=== PATIENT | male | born 1945 | race Caucasian/White ===

== ENCOUNTER 2018-05-20 21:48 | Inpatient (IN) | payer MEDICARE, BC ==
[2018-05-20] MEDS ORDERED: CEFEPIME 2GM/50 ML (PMX) 50 ML IVPB (22:21)
[2018-05-20] MEDS: morphine 4 MG/ML VIAL IV (22:27)
[2018-05-20] MEDS: ONDANSETRON 4 MG INJ IV (22:27)
[2018-05-20] MEDS: SODIUM CHLORIDE 0.9% 1L BAG IV* (22:37)
[2018-05-20 22:47] LABS: ADD MAN DIFF? NO
[2018-05-20 22:49] LABS: ABNORMAL IP MESSAGE 1; BASOPHILS % 0.2 % (0.0-2.0); EOSINOPHILS % 0.4 % (0.0-7.0); HEMATOCRIT 42.7 % (42.0-52.0); LYMPHOCYTES # 0.6 10^3/ul (0.8-2.9); LYMPHOCYTES % 4.9 % (15.0-51.0); MEAN CORPUSCULAR HEMOGLOBIN 30.3 pg (29.0-33.0); MEAN CORPUSCULAR HGB CONC 32.8 g/dl (32.0-37.0); MEAN CORPUSCULAR VOLUME 92.4 fl (82.0-101.0); MEAN PLATELET VOLUME 9.9 fl (7.4-10.4); MONOCYTE # 0.1 10^3/ul (0.3-0.9); MONOCYTES % 0.7 % (0.0-11.0); NEUTROPHIL # 10.4 10^3/ul (1.6-7.5); NEUTROPHILS % 93.3 % (39.0-77.0); PLATELET COUNT 181 10^3/UL (140-415); POSITIVE DIFF @See below; RED BLOOD COUNT 4.62 10^6/ul (4.70-6.10); RED CELL DISTRIBUTION WIDTH 13.2 % (11.5-14.5)
[2018-05-20 22:49] LABS: WHITE BLOOD COUNT 11.2 10^3/ul (4.8-10.8)
[2018-05-20 23:05] LABS: ALANINE AMINOTRANSFERASE 16 IU/L (13-69); ALBUMIN 3.7 g/dl (3.3-4.9); ALBUMIN/GLOBULIN RATIO 1.32; ALKALINE PHOSPHATASE 110 IU/L (42-121); ANION GAP 10 (8-16); ASPARTATE AMINO TRANSFERASE 25 IU/L (15-46); BILIRUBIN,INDIRECT 0.6 mg/dl (0-1.1); BILIRUBIN,TOTAL 0.6 mg/dl (0.2-1.3); BLOOD UREA NITROGEN 18 mg/dl (7-20); CALCIUM 8.6 mg/dl (8.4-10.2); CARBON DIOXIDE 28 mmol/L (21-31); CHLORIDE 104 mmol/L (97-110); CREATININE 1.14 mg/dl (0.61-1.24); GLUCOSE 108 mg/dl (70-220); POTASSIUM 4.1 mmol/L (3.5-5.1); SODIUM 138 mmol/L (135-144); TOTAL PROTEIN 6.5 g/dl (6.1-8.1)
[2018-05-20 23:09] LABS: INR 1.01; PROTIME 13.4 Sec (11.9-14.9)
[2018-05-20 23:18] LABS: TROPONIN-I 0.015 ng/ml (0.000-0.120)
[2018-05-20 23:33] LABS: LACTIC ACID 2.2 mmol/L (0.5-2.0)
[2018-05-21 00:44] LABS: LACTIC ACID 1.5 mmol/L (0.5-2.0)
[2018-05-21] MEDS ORDERED: ACETAMINOPHEN 325 MG TAB PO (01:30)
[2018-05-21] MEDS ORDERED: ALBUTEROL/IPRATROPIUM (NEB) 3 ML AMP HHN (01:30)
[2018-05-21] MEDS ORDERED: ONDANSETRON 4 MG INJ IV (01:30)
[2018-05-21] MEDS ORDERED: AMIKACIN IV PER PHARMACY XX (01:30)
[2018-05-21] MEDS ORDERED: VANCOMYCIN IV PER PHARMACY XX (01:30)
[2018-05-21] MEDS ORDERED: NACL 0.9% 3 ML SYG IV (01:30)
[2018-05-21] MEDS: SOD CHLORIDE 0.9% 1,000 ML IV ×4 (02:11→16:29)
[2018-05-21] MEDS: AMIKACIN 900 MG in SOD CHLORIDE 0.9% 100 ML IVPB (03:51)
[2018-05-21] MEDS: VANCOMYCIN 1 GM in 250 ML IVPB (06:01)
[2018-05-21 06:18] LABS: ADD MAN DIFF? NO
[2018-05-21 06:33] LABS: BASOPHILS % 0.2 % (0.0-2.0); HEMATOCRIT 36.3 % (42.0-52.0); HEMOGLOBIN 11.6 g/dl (14.0-18.0); LYMPHOCYTES # 0.8 10^3/ul (0.8-2.9); LYMPHOCYTES % 4.1 % (15.0-51.0); MEAN CORPUSCULAR VOLUME 93.8 fl (82.0-101.0); MEAN PLATELET VOLUME 10.4 fl (7.4-10.4); NEUTROPHIL # 17.1 10^3/ul (1.6-7.5); PLATELET COUNT 160 10^3/UL (140-415); RED BLOOD COUNT 3.87 10^6/ul (4.70-6.10); RED CELL DISTRIBUTION WIDTH 13.7 % (11.5-14.5)
[2018-05-21 06:45] LABS: ANION GAP 11 (8-16); BLOOD UREA NITROGEN 16 mg/dl (7-20); CALCIUM 7.8 mg/dl (8.4-10.2); CARBON DIOXIDE 26 mmol/L (21-31); CHLORIDE 108 mmol/L (97-110); CREATININE 1.03 mg/dl (0.61-1.24); GLUCOSE 125 mg/dl (70-220); POTASSIUM 3.7 mmol/L (3.5-5.1); SODIUM 141 mmol/L (135-144)
[2018-05-21] MEDS: ENOXAPARIN 40 MG/0.4 ML SYG SC (08:30)
[2018-05-21 11:06] LABS: ADD UMIC YES; UR ASCORBIC ACID NEGATIVE (NEGATIVE); UR BILIRUBIN (Dip) NEGATIVE (NEGATIVE); UR BLOOD (Dip) 2+ mg/dL (NEGATIVE); UR CLARITY CLOUDY (CLEAR); UR COLOR YELLOW (YELLOW); UR GLUCOSE (Dip) NEGATIVE (NEGATIVE); UR KETONES (Dip) NEGATIVE (NEGATIVE); UR LEUKOCYTE ESTERASE (Dip) 3+ Leu/ul (NEGATIVE); UR MUCUS FEW /HPF (NONE SEEN); UR NITRITE (Dip) NEGATIVE (NEGATIVE); UR RBC 12 /HPF (0-5); UR SPECIFIC GRAVITY (Dip) 1.015 (1.003-1.030); UR TOTAL PROTEIN (Dip) NEGATIVE (NEGATIVE); UR UROBILINOGEN (Dip) NEGATIVE (NEGATIVE); UR WBC > 182 /HPF (0-5)
[2018-05-21] MEDS ORDERED: VANCOMYCIN 750 MG in SOD CHLORIDE 0.9% 150 ML IVPB (17:00)
[2018-05-21 18:41] LABS: AMIKACIN RANDOM 6.2 mg/L
[2018-05-21] MEDS: TAMSULOSIN (SR) 0.4 MG CAP PO (21:56)
[2018-05-21] MEDS: HYDROCODONE/APAP (5/325) TAB PO (21:59)
[2018-05-22] MEDS: SOD CHLORIDE 0.9% 1,000 ML IV ×2 (02:33→14:41)
[2018-05-22] MEDS: AMIKACIN 900 MG in SOD CHLORIDE 0.9% 250 ML IVPB (04:24)
[2018-05-22 05:34] LABS: ADD MAN DIFF? NO
[2018-05-22 05:40] LABS: BASOPHILS % 0.3 % (0.0-2.0); EOSINOPHILS # 0.2 10^3/ul (0.0-0.5); EOSINOPHILS % 1.4 % (0.0-7.0); HEMATOCRIT 36.6 % (42.0-52.0); HEMOGLOBIN 11.7 g/dl (14.0-18.0); LYMPHOCYTES # 1.9 10^3/ul (0.8-2.9); LYMPHOCYTES % 15.1 % (15.0-51.0); MEAN CORPUSCULAR HEMOGLOBIN 30.2 pg (29.0-33.0); MEAN CORPUSCULAR VOLUME 94.6 fl (82.0-101.0); MEAN PLATELET VOLUME 10.6 fl (7.4-10.4); MONOCYTE # 1.1 10^3/ul (0.3-0.9); MONOCYTES % 8.6 % (0.0-11.0); NEUTROPHIL # 9.4 10^3/ul (1.6-7.5); NEUTROPHILS % 74.3 % (39.0-77.0); PLATELET COUNT 138 10^3/UL (140-415); RED BLOOD COUNT 3.87 10^6/ul (4.70-6.10); RED CELL DISTRIBUTION WIDTH 13.6 % (11.5-14.5)
[2018-05-22 05:40] LABS: WHITE BLOOD COUNT 12.7 10^3/ul (4.8-10.8)
[2018-05-22 06:03] LABS: ALANINE AMINOTRANSFERASE 20 IU/L (13-69); ALBUMIN 2.4 g/dl (3.3-4.9); ALBUMIN/GLOBULIN RATIO 0.96; ALKALINE PHOSPHATASE 67 IU/L (42-121); ANION GAP 9 (8-16); ASPARTATE AMINO TRANSFERASE 25 IU/L (15-46); BILIRUBIN,INDIRECT 0.1 mg/dl (0-1.1); BILIRUBIN,TOTAL 0.1 mg/dl (0.2-1.3); BLOOD UREA NITROGEN 12 mg/dl (7-20); CALCIUM 7.6 mg/dl (8.4-10.2); CARBON DIOXIDE 26 mmol/L (21-31); CHLORIDE 109 mmol/L (97-110); CREATININE 0.77 mg/dl (0.61-1.24); GLUCOSE 131 mg/dl (70-220); POTASSIUM 3.8 mmol/L (3.5-5.1); SODIUM 140 mmol/L (135-144); TOTAL PROTEIN 4.9 g/dl (6.1-8.1)
[2018-05-22] MEDS: TAMSULOSIN (SR) 0.4 MG CAP PO ×2 (08:56→21:03)
[2018-05-22] MEDS: ENOXAPARIN 40 MG/0.4 ML SYG SC (08:57)
[2018-05-22] MEDS: HYDROCODONE/APAP (5/325) TAB PO (21:03)
[2018-05-23] MEDS: AMIKACIN 900 MG in SOD CHLORIDE 0.9% 250 ML IVPB (04:17)
[2018-05-23] MEDS: HYDROCODONE/APAP (5/325) TAB PO ×2 (04:24→16:02)
[2018-05-23 05:00] LABS: ADD MAN DIFF? NO
[2018-05-23 05:07] LABS: BASOPHILS % 0.2 % (0.0-2.0); EOSINOPHILS # 0.2 10^3/ul (0.0-0.5); EOSINOPHILS % 2.3 % (0.0-7.0); HEMATOCRIT 36.6 % (42.0-52.0); HEMOGLOBIN 11.7 g/dl (14.0-18.0); LYMPHOCYTES # 2.5 10^3/ul (0.8-2.9); LYMPHOCYTES % 23.3 % (15.0-51.0); MEAN CORPUSCULAR HEMOGLOBIN 29.5 pg (29.0-33.0); MEAN CORPUSCULAR VOLUME 92.4 fl (82.0-101.0); MEAN PLATELET VOLUME 10.7 fl (7.4-10.4); MONOCYTE # 1.4 10^3/ul (0.3-0.9); MONOCYTES % 13.4 % (0.0-11.0); NEUTROPHIL # 6.4 10^3/ul (1.6-7.5); NEUTROPHILS % 60.5 % (39.0-77.0); PLATELET COUNT 132 10^3/UL (140-415); POSITIVE DIFF @See below; RED BLOOD COUNT 3.96 10^6/ul (4.70-6.10); RED CELL DISTRIBUTION WIDTH 13.3 % (11.5-14.5)
[2018-05-23 05:07] LABS: WHITE BLOOD COUNT 10.6 10^3/ul (4.8-10.8)
[2018-05-23 05:54] LABS: ANION GAP 10 (8-16); BLOOD UREA NITROGEN 6 mg/dl (7-20); CALCIUM 7.9 mg/dl (8.4-10.2); CARBON DIOXIDE 30 mmol/L (21-31); CHLORIDE 109 mmol/L (97-110); CREATININE 0.67 mg/dl (0.61-1.24); GLUCOSE 90 mg/dl (70-220); POTASSIUM 3.8 mmol/L (3.5-5.1); SODIUM 145 mmol/L (135-144)
[2018-05-23] MEDS: ENOXAPARIN 40 MG/0.4 ML SYG SC (08:52)
[2018-05-23] MEDS: TAMSULOSIN (SR) 0.4 MG CAP PO ×2 (08:52→20:40)
[2018-05-23] MEDS: CIPROFLOXACIN 500 MG TAB PO ×2 (11:11→17:09)
[2018-05-24] MEDS: HYDROCODONE/APAP (5/325) TAB PO ×2 (03:41→16:29)
[2018-05-24] MEDS: CIPROFLOXACIN 500 MG TAB PO (06:13)
[2018-05-24] MEDS: TAMSULOSIN (SR) 0.4 MG CAP PO (10:13)
[2018-05-24] MEDS: ENOXAPARIN 40 MG/0.4 ML SYG SC ×3 (10:14→15:18)
== END 2018-05-24 17:00 | disposition home or self-care (01) | DRG 872 ==
LOC: E/R 21:48 → MS1 23:56
DX: A41.9 Sepsis, unspecified organism (principal); N10 Acute pyelonephritis; N20.0 Calculus of kidney; K57.30 Diverticulosis of large intestine without perforation or abscess without bleeding; K44.9 Diaphragmatic hernia without obstruction or gangrene; N40.1 Benign prostatic hyperplasia with lower urinary tract symptoms; R33.8 Other retention of urine; B96.20 Unspecified Escherichia coli [E. coli] as the cause of diseases classified elsewhere; R10.31 Right lower quadrant pain; Z87.442 Personal history of urinary calculi
CPT/HCPCS: 36415; 71045; 74176; 76775; 80048; 80053; 80150; 81001; 83605; 84484; 85025; 85610; 85730; 87040; 87086; 93005; 96374; 96375; 99291-25

== ENCOUNTER 2019-04-26 13:13 | Emergency (ER) | payer MEDICARE, BC ==
[2019-04-26] MEDS: SODIUM CHLORIDE 0.9% 1L BAG IV* (13:44)
[2019-04-26] MEDS: metroNIDAZOLE 500 MG/NS (PMX) 100 ML IVPB (13:44)
[2019-04-26 13:52] LABS: ABNORMAL IP MESSAGE 1; HEMOGLOBIN 14.5 g/dl (14.0-18.0); MEAN CORPUSCULAR HEMOGLOBIN 30.4 pg (29.0-33.0); MEAN CORPUSCULAR VOLUME 92.2 fl (82.0-101.0); PLATELET COUNT 167 10^3/UL (140-415); POSITIVE DIFF @See below; RED BLOOD COUNT 4.77 10^6/ul (4.70-6.10); RED CELL DISTRIBUTION WIDTH 13.3 % (11.5-14.5)
[2019-04-26 13:52] LABS: WHITE BLOOD COUNT 20.9 10^3/ul (4.8-10.8)
[2019-04-26 13:57] LABS: ADD MAN DIFF? YES
[2019-04-26 14:08] LABS: ALANINE AMINOTRANSFERASE 38 IU/L (13-69); ALBUMIN 3.5 g/dl (3.3-4.9); ALKALINE PHOSPHATASE 122 IU/L (42-121); ANION GAP 11 (5-13); ASPARTATE AMINO TRANSFERASE 61 IU/L (15-46); BILIRUBIN,INDIRECT 0.5 mg/dl (0-1.1); BILIRUBIN,TOTAL 0.5 mg/dl (0.2-1.3); BLOOD UREA NITROGEN 23 mg/dl (7-20); CALCIUM 8.6 mg/dl (8.4-10.2); CARBON DIOXIDE 23 mmol/L (21-31); CHLORIDE 109 mmol/L (97-110); CREATININE 1.25 mg/dl (0.61-1.24); GLUCOSE 155 mg/dl (70-220); POTASSIUM 4.1 mmol/L (3.5-5.1); SODIUM 143 mmol/L (135-144); TOTAL PROTEIN 6.4 g/dl (6.1-8.1)
[2019-04-26 14:13] LABS: INR 1.05; PARTIAL THROMBOPLASTIN TIME 29.1 Sec (23.0-35.0); PROTIME 13.8 Sec (11.9-14.9); PT RATIO 1.1
[2019-04-26 14:24] LABS: TROPONIN-I 0.178 ng/ml (0.000-0.120)
[2019-04-26 14:38] LABS: ANISOCYTOSIS 1+ (0-0); BAND NEUTROPHILS #M 9.1 10^3/ul (0.0-0.6); BAND NEUTROPHILS % (M) 44 % (0-4); GIANT THROMBO% (M) 1 % (0-0); LYMPHOCYTES #M 0.4 10^3/ul (0.8-2.9); LYMPHOCYTES % (M) 2 % (15-51); MONOCYTE #M 0.8 10^3/ul (0.3-0.9); MONOCYTES % (M) 4 % (0-11); PLATELET ESTIMATE NORMAL; POIKILOCYTOSIS 2+ (0-0); POLYCHROMASIA 1+ (0-0); SEG NEUT #M 12.6 10^3/ul (1.6-7.5); SEGMENTED NEUTROPHILS (M) % 51 % (39-77); SMUDGE%M 15 % (0-0)
[2019-04-26] MEDS: LEVOFLOXACIN 750MG/D5W (PMX) 150 ML IVPB (15:12)
[2019-04-26 16:05] LABS: ADD UMIC YES; UR ASCORBIC ACID NEGATIVE (NEGATIVE); UR BACTERIA FEW /HPF (NONE SEEN); UR BILIRUBIN (Dip) NEGATIVE (NEGATIVE); UR BLOOD (Dip) 1+ mg/dL (NEGATIVE); UR CLARITY SLIGHTLY CLOUDY (CLEAR); UR COLOR YELLOW (YELLOW); UR GLUCOSE (Dip) NEGATIVE (NEGATIVE); UR KETONES (Dip) NEGATIVE (NEGATIVE); UR LEUKOCYTE ESTERASE (Dip) 3+ Leu/ul (NEGATIVE); UR NITRITE (Dip) NEGATIVE (NEGATIVE); UR RBC 4 /HPF (0-5); UR SPECIFIC GRAVITY (Dip) 1.005 (1.003-1.030); UR TOTAL PROTEIN (Dip) NEGATIVE (NEGATIVE); UR UROBILINOGEN (Dip) NEGATIVE (NEGATIVE); UR WBC 47 /HPF (0-5)
[2019-04-26 16:17] LABS: LACTIC ACID 2.4 mmol/L (0.5-2.0)
[2019-04-26] MEDS ORDERED: ACETAMINOPHEN 325 MG TAB PO ×2 (17:00)
[2019-04-26] MEDS ORDERED: ALBUTEROL/IPRATROPIUM (NEB) 3 ML AMP HHN (17:00)
[2019-04-26] MEDS ORDERED: NACL 0.9% 3 ML SYG IV (17:00)
[2019-04-26] MEDS ORDERED: morphine 2 MG INJ IV (17:00)
[2019-04-26] MEDS ORDERED: HYDROCODONE/APAP (5/325) TAB PO (17:00)
[2019-04-26] MEDS ORDERED: LORAZEPAM 2 MG INJ IV (17:00)
[2019-04-26] MEDS ORDERED: MAGNESIUM HYDROXIDE 30ML CUP PO (17:00)
[2019-04-26] MEDS ORDERED: ONDANSETRON 4 MG INJ IV ×2 (17:00)
[2019-04-26] MEDS ORDERED: DOCUSATE SODIUM 100 MG CAP PO (17:00)
[2019-04-26] MEDS ORDERED: hydrALAzine 20 MG INJ IV (17:00)
[2019-04-26] MEDS: FAMOTIDINE 20 MG INJ IV ×2 (17:00→17:39)
[2019-04-26] MEDS ORDERED: NITROGLYCERIN (SL) 0.4 MG TAB SL (17:00)
[2019-04-26] MEDS ORDERED: VANCOMYCIN IV PER PHARMACY XX (17:00)
[2019-04-26] MEDS ORDERED: VANCOMYCIN 1.5 GM/NS 250 ML 250 ML IVPB (17:30)
[2019-04-26 17:38] LABS: FREE T4 (FREE THYROXINE) 1.03 ng/dl (0.78-2.44)
[2019-04-26] MEDS: SOD CHLORIDE 0.9% 1,000 ML IV (17:39)
[2019-04-26] MEDS: AZTREONAM 2 GM in SOD CHLORIDE 0.9% 100 ML IVPB (17:39)
[2019-04-26 18:05] LABS: INR 1.28; PROTIME 16.1 Sec (11.9-14.9); PT RATIO 1.3
[2019-04-26 18:06] LABS: PARTIAL THROMBOPLASTIN TIME 34.2 Sec (23.0-35.0)
[2019-04-26 18:43] LABS: LACTIC ACID 2.4 mmol/L (0.5-2.0)
[2019-04-26] MEDS ORDERED: HEPARIN 5,000 UNIT/1 ML VIAL SC (21:00)
[2019-04-26] MEDS ORDERED: AZTREONAM 2 GM in SOD CHLORIDE 0.9% 100 ML IVPB (22:00)
[2019-04-27] MEDS ORDERED: PANTOPRAZOLE 40 MG INJ IV (06:00)
== END 2019-04-26 20:22 | disposition left against medical advice (07) ==
LOC: E/R 20:22
DX: A41.9 Sepsis, unspecified organism (principal); R65.20 Severe sepsis without septic shock; N39.0 Urinary tract infection, site not specified; N17.9 Acute kidney failure, unspecified
CPT/HCPCS: 71045; 74176; 80053; 81001; 83605; 84439; 84484; 85025; 85610; 85730; 87040-91; 87086; 93005; 96374; 96375; 99285-25